=== PATIENT | female | born 1930 | race Caucasian/White ===

== ENCOUNTER 2018-04-10 12:06 | Inpatient (IN) ==
--- NOTE | 2018-04-10 12:18 | ERNOTE ---
Lower Extremity HPI - Narrative Date of Service: 04/10/18 - General Lower Extremities Pain: foot: left, 1st toe: left Time Seen by Provider: 04/10/18 12:17 Source: patient Exam Limitations: no limitations - Immun/Allergies/Home Medications Immunizations: IMMUNIZATION HX Immunizations Up to Date Yes History of Influenza Vaccine Yes Hx Pneumococcal Vaccination Yes Allergies/Adverse Reactions: Allergies Allergy/AdvReac Type Severity Reaction Status Date / Time codeine Allergy Verified 04/10/18 12:13 ibuprofen Allergy Verified 04/10/18 12:13 Home Medications: HOME MEDICATIONS Amlodipine Besylate 10 mg PO DAILY 10/03/17 [Last Taken Unknown] Atorvastatin Calcium 20 mg PO DAILY 10/03/17 [Last Taken Unknown] Cyanocobalamin [Vitamin B-12] 1,000 mcg PO DAILY 10/03/17 [Last Taken Unknown] Digoxin [Lanoxin] 0.125 mg PO DAILY 10/03/17 [Last Taken Unknown] Diltiazem HCl [Cartia Xt] 240 mg PO DAILY 10/03/17 [Last Taken Unknown] Furosemide [Lasix] 40 mg PO BID 10/03/17 [Last Taken Unknown] Lisinopril [Prinivil] 10 mg PO DAILY 10/03/17 [Last Taken Unknown] Omeprazole [Prilosec] 20 mg PO BID 10/03/17 [Last Taken Unknown] Sertraline HCl [Zoloft] 100 mg PO DAILY 10/03/17 [Last Taken Unknown] glipiZIDE [Glipizide] 15 mg PO BID 10/03/17 [Last Taken Unknown] Fluticasone/Salmeterol [Advair Hfa 115-21 Mcg Inhaler] 8 gm IH BID #1 hfa.aer.ad 10/04/17 [Last Taken Unknown] - Pain Score Pain Score #1 Pain Score: 0 - History of Present Illness Narrative: The patient is a 88 year old female who presents for left toe redness which has been present for 1 week. There are associated symptoms of fatigue. The patient denies pain. There are no alleviating factors. There are no aggravating factors. Previous treatments have included: none. The past medical history includes: HTN, HLD, GERD, DM, COPD and colorectal ca with hx of radiation treatment. The social history is positive for former smoker. The patient has had no ill contacts. Patient denies known injury to foot or left great toe. Patient was previously evaluated and treated with removal of calloused tissue to left great toe by as reported by patient. Patient states she has noticed for approximately 1 week discoloration and worsening redness to left great toe and foot along with drainage from wounds. Patient states she has began having discomfort noted to plantar 1st MP. Review of Systems - Review of Systems Constitutional: Present: chills, fatigue. Absent: fever EYE: Present: no symptoms reported ENT: Present: no symptoms reported. Absent: ear pain, nasal drainage, sore throat Respiratory: Present: no symptoms reported. Absent: shortness of breath, cough Cardiology: Present: no symptoms reported. Absent: chest pain Gastrointestinal/Abdominal: Present: nausea, vomiting, diarrhea Genitourinary: Present: no symptoms reported. Absent: dysuria Musculoskeletal: Present: joint pain Skin: Present: no symptoms reported. Absent: rash Neurological: Present: no symptoms reported Endocrine: Present: no symptoms reported Hematologic/Lymphatic: Present: no symptoms reported Psych: Present: no symptoms reported All Other Systems: All systems neg except as marked Medical History (Last Reviewed 04/10/18 @ 12:24 by RODOLFO Dya) COPD (chronic obstructive pulmonary disease) Diabetes GERD (gastroesophageal reflux disease) Hyperlipidemia Hypertension Social History: Preferred Language Slovak Smoking Status Former smoker Alcohol Use none Drug Use none No Social History Section defined Physical Exam - Physical Exam General Appearance: Present: wd/wn, alert, no apparent distress Head Exam: Present: normal inspection, no evidence of injury Eye Exam: Normal inspection: bilateral Neck: Present: normal inspection Respiratory: Present: no respiratory distress, no accessory muscle use, decreased breath sounds Cardiovascular/Chest: Present: no murmur, tachycardia Peripheral Pulses: N=norm/S=strong/W=weak/B=bound/A=absent: Dorsalis-pedis (L): Normal Extremity Exam: Present: normal range of motion, joint redness - left great metatarsal, areas of excoriation and necrotic tissue, erythema to circumferential great toe extending to dorsal foot Skin Exam: Present: normal color, warm/dry Progress - Date and Time Seen: Date and Time: 04/10/18 13:00 Message left for , attempt to also reach at office without contact made. Discussed case with will admit for presumed osteomylitis and cellulitis of left great toe. 04/10/18 13:37 Discussed with 's nurse awaiting return call. Discussed with case management and patient to be observation until definitive diagnosis of osteomylitis made. 04/10/18 13:47 Spoke with regarding consult during admission. Will start patient on Vanco since blood cultures and wound cultures obtained and pending. - Results and Orders Patient's Lab Results:: I have reviewed the patient's lab results. - Vital Signs Patient's Vital Signs:: I have reviewed the patient's vital signs. Vital Signs: Vital Signs 04/10/18 12:06 Temperature 36.7 C Pulse Rate 106 H Respiratory Rate 18 Blood Pressure 121/68 O2 Sat by Pulse Oximetry 99 - X-Ray X-Ray #1 X-Ray: foot Interpretation: Reviewed by me X-ray Comments: X-RAY REPORT ~[id number] RAD/Foot 3 Views LT *~ Exam Date: 04/10/2018 12:21 Ordering Physician: Vonda REYNOLDS HISTORY/INDICATION: wound and presumed necrosis to left great toe Additional history from technologist: Gangrenous left great toe. TECHNIQUE: 3 views of the left foot. COMPARISONS: None available. Foot 3 Views LT * No definable fracture lucency or cortical discontinuity. There is irregularity of the distal tuft of the first toe, and decreased attenuation/osteopenia localized to the first distal phalanx, which could represent potential osteomyelitis. Joint spaces are in gross normal alignment without subluxation or dislocation. Lisfranc joint grossly intact. Degenerative changes of the foot, especially at the first tarsometatarsal joint, first MTP joint noted. Soft tissue swelling noted at the first toe. Slight irregularity of the distal tip of the first toe may represent a skin wound. Correlate clinically. There is no evidence for soft tissue gas or radiopaque foreign body. IMPRESSION: 1. Findings as above, concerning for osteomyelitis of the first distal phalanx. If needed, consider follow-up by MRI examination of the left foot or three-phase nuclear medicine bone scan, on nonemergent basis. 2. Soft tissue swelling of the first toe. Potential wound at the tip of the first toe. Correlate clinically. 3. Additional comments are as above. Electronically signed by Pil Frankel, M.D.. - Progress/Reassessment Chief Complaint: Foot Injury/Pain Departure Clinical Impression: Osteomyelitis of toe of left foot Cellulitis Qualifiers: Site of cellulitis: extremity Site of cellulitis of extremity: lower extremity Laterality: left Qualified Code(s): L03.116 - Cellulitis of left lower limb - Departure Disposition: Still a patient Condition: Fair
[2018-04-10 12:43] LABS: Hematocrit 35.3 % (37.0-47.0); Hemoglobin 10.8 gm/dL (12.5-16.0); Mean Cell Volume 80.8 fl (78-100); Mean Corpuscular Hemoglobin 24.7 pg (27-31); Mean Corpuscular Hgb Conc 30.6 g/dl (32-36); Neutrophil # 10.3 K/mm3 (1.3-6.0); Neutrophil % 76.4 % (42-75.0); Platelet Count 263 K/mm3 (150-450); Red Blood Count 4.37 M/mm3 (4.2-5.4); Red Cell Distribution Width 16.1 % (11.5-14.0); White Blood Count 13.4 K/mm3 (4.0-10.5)
[2018-04-10 12:53] LABS: Albumin * 3.7 gm/dl (3.4-5.0); BUN/Creatinine Ratio 25.9 (9.0-21.6); Bilirubin, Total 0.4 mg/dL (0.0-1.1); CRP 2.8 mg/dL (0.0-0.9); Calcium * 9.1 mg/dL (7.9-10.9); Carbon Dioxide 29.1 mmol/L (24-32.6); Potassium 4.1 mmol/L (3.4-4.6); Total Protein 7.3 gm/dL (6.2-8.2)
[2018-04-10] MEDS ORDERED: VANCOMYCIN HCL 1 GM in DEXTROSE 5 % IN WATER 250 ML IV ONE ×2 (13:42)
--- NOTE | 2018-04-11 06:32 | HP ---
Chief Complaint - Chief Complaint Date of Service: 04/10/18 Time of Service: 13:00 Chief Complaint: Black left toe History of Present Illness: Luzmaria is an 88 yo female with history of uncontrolled diabetes mellitus type II, insulin dependent. She had seen Podiatry last week for sore on left great toe which was debrided. She reports afterwards it began to worsen and developed dark spots. She denies pain and reports toes are always numb. She denies fever, chills, nausea, or vomiting. She does report a history of bypass grafting for coronary heart disease. She has followed with cardiology in the past but has done well without problems since 2001. She has nitro to take for chest pain but rarely has to use this. Her last angina episode was about 3 months ago, she used a nitro SL at that time and her angina resolved as usual. S he denies any recent change in medication, diet, or activity. Medical History (Last Updated 04/13/18 @ 00:32 by Andrez No DO) CAD (coronary artery disease) Colon cancer COPD (chronic obstructive pulmonary disease) Diabetes GERD (gastroesophageal reflux disease) Hyperlipidemia Hypertension Surgical History: Surgical History (Last Reviewed 04/10/18 @ 14:22 by Rhonda Stephens RN) History of heart bypass surgery Family History: Family History (Last Updated 04/13/18 @ 00:32 by Andrez No DO) Other Family history non-contributory Social History: Patient Lives/Resources Home Utilized Occupation retired Preferred Language Haitian Do you have any baptism or No cultural preference? Smoking Status Former smoker Have you smoked in the past 12 No months Alcohol Use none Drug Use none No Social History Section defined Review Of Systems (GEN) - Review of Systems Generalized/Overall Review: Absent: Weakness, Chills, Fever EENTM: Present: No Symptoms Reported Respiratory: Absent: Cough, Shortness of Breath Cardiac: Absent: Chest Pain, Edema Abdominal: Absent: Nausea, Vomiting Genitourinary: Present: No Symptoms Reported Musculoskeletal: Absent: Joint Pain, Back Pain Neurological: Present: No Symptoms Reported Skin: Present: Change in Color - left great toe dark with surrounding redness Immunizations: IMMUNIZATION HX Immunizations Up to Date Yes History of Influenza Vaccine Yes Hx Pneumococcal Vaccination Yes Allergies/Adverse Reactions: Allergies Allergy/AdvReac Type Severity Reaction Status Date / Time codeine Allergy Severe Verified 04/10/18 14:24 ibuprofen AdvReac Mild Other Verified 04/10/18 14:24 Home Medications: HOME MEDICATIONS Amlodipine Besylate 10 mg PO DAILY 10/03/17 [Last Taken Unknown] Atorvastatin Calcium 20 mg PO HS 10/03/17 [Last Taken Unknown] Digoxin [Lanoxin] 0.125 mg PO DAILY 10/03/17 [Last Taken Unknown] Diltiazem HCl [Cartia Xt] 240 mg PO DAILY 10/03/17 [Last Taken Unknown] Furosemide [Lasix] 40 mg PO BID 10/03/17 [Last Taken Unknown] Lisinopril [Prinivil] 10 mg PO DAILY 10/03/17 [Last Taken Unknown] Omeprazole [Prilosec] 20 mg PO BID 10/03/17 [Last Taken Unknown] Sertraline HCl [Zoloft] 100 mg PO DAILY 10/03/17 [Last Taken Unknown] glipiZIDE [Glipizide] 5 mg PO TID 10/03/17 [Last Taken Unknown] Insulin Glargine,Hum.rec.anlog [Lantus Solostar] 100 unit SQ DAILY 04/11/18 [Last Taken Unknown] Meclizine HCl 25 mg PO BID 04/11/18 [Last Taken Unknown] Exam - Exam Vital Signs: Vital Signs - Last Taken Temp 37.3 C 04/11/18 05:00 Pulse 85 04/11/18 05:00 Resp 16 04/11/18 05:00 BP 138/63 04/11/18 05:00 Pulse Ox 95 04/11/18 05:00 Constitutional: Present: Alert, Oriented x3, Cooperative, No distress ENT Exam: Present: hearing grossly normal, other - rhythmic tongue protrusion Eye Exam: bilateral eye: normal inspection Respiratory: Present: lungs clear, normal breath sounds Cardiovascular/Chest: Present: regular rate, rhythm, no edema, systolic murmur - 2+ Peripheral Pulses: dorsalis-pedis (R): 2+, dorsalis-pedis (L): 2+, radial (R): 2+, radial (L): 2+ Abdomen: Present: Normal bowel sounds, soft, nontender, nondistended Skin Exam: Present: other - Left great toe with erythema from distal tip to 1st MTP joint, multiple blackened areas on left great toe Appearance: Present: appropriate insight Eye contact: Present: cooperative, good eye contact Thoughts: Present: normal thought pattern Diagnostic Studies: Abnormal Lab Results 04/10/18 04/10/18 04/10/18 Range/Units 12:34 12:34 12:34 WBC 13.4 H (4.0-10.5) K/mm3 Hgb 10.8 L (12.5-16.0) gm/dL Hct 35.3 L (37.0-47.0) % MCH 24.7 L (27-31) pg MCHC 30.6 L (32-36) g/dl RDW 16.1 H (11.5-14.0) % Immature Gran % (Auto) 0.70 H (0.001-0.429) % Immature Gran # (Auto) 0.09 H (0.000-0.0310) K/mm3 Neutrophils % 76.4 H (42-75.0) % Lymphocytes % 12.1 L (20-51) % Monocytes % 9.3 H (0.0-9) % Neutrophils # 10.3 H (1.3-6.0) K/mm3 Monocytes # 1.3 H (0.0-1.0) k/mm3 ESR 41 H (0-15) mm/hr Anion Gap 15.0 H (6.8-13.8) mmol/L BUN 30 H (3-23) mg/dL Est GFR (Non-Af Amer) 47 L (60-130) mL/min BUN/Creatinine Ratio 25.9 H (9.0-21.6) Random Glucose 69 L (70-110) mg/dL ALT 13 L (19-67) U/L C-Reactive Prot, Quant 2.8 H (0.0-0.9) mg/dL Laboratory Results WBC 13.4 K/mm3 (4.0-10.5) H 04/10/18 12:34 RBC 4.37 M/mm3 (4.2-5.4) 04/10/18 12:34 Hgb 10.8 gm/dL (12.5-16.0) L 04/10/18 12:34 Hct 35.3 % (37.0-47.0) L 04/10/18 12:34 MCV 80.8 fl (78-100) 04/10/18 12:34 MCH 24.7 pg (27-31) L 04/10/18 12:34 MCHC 30.6 g/dl (32-36) L 04/10/18 12:34 RDW 16.1 % (11.5-14.0) H 04/10/18 12:34 Plt Count 263 K/mm3 (150-450) 04/10/18 12:34 MPV 11.0 fl (8-12.5) 04/10/18 12:34 Immature Gran % (Auto) 0.70 % (0.001-0.429) H 04/10/18 12:34 Immature Gran # (Auto) 0.09 K/mm3 (0.000-0.0310) H 04/10/18 12:34 Neutrophils % 76.4 % (42-75.0) H 04/10/18 12:34 Lymphocytes % 12.1 % (20-51) L 04/10/18 12:34 Monocytes % 9.3 % (0.0-9) H 04/10/18 12:34 Eosinophils % 1.2 % (0.0-3.0) 04/10/18 12:34 Basophils % 0.3 % (0.0-1.0) 04/10/18 12:34 Nucleated RBC % 0.0 k/mm3 (0-1) 04/10/18 12:34 Neutrophils # 10.3 K/mm3 (1.3-6.0) H 04/10/18 12:34 Lymphocytes # 1.62 k/mm3 (1.5-3.5) 04/10/18 12:34 Monocytes # 1.3 k/mm3 (0.0-1.0) H 04/10/18 12:34 Eosinophils # 0.2 k/mm3 (0.0-0.7) 04/10/18 12:34 Absolute Basophils 0.0 k/mm3 (0.0-0.1) 04/10/18 12:34 ESR 41 mm/hr (0-15) H 04/10/18 12:34 Sodium 140 mmol/L (132-142) 04/10/18 12:34 Plasma Sodium 140 mmol/L (130-142) 04/10/18 12:34 Potassium 4.1 mmol/L (3.4-4.6) 04/10/18 12:34 Chloride 100 mmol/L (97-106) 04/10/18 12:34 Carbon Dioxide 29.1 mmol/L (24-32.6) 04/10/18 12:34 Anion Gap 15.0 mmol/L (6.8-13.8) H 04/10/18 12:34 BUN 30 mg/dL (3-23) H 04/10/18 12:34 Creatinine 1.16 mg/dL (0.4-1.4) 04/10/18 12:34 Est GFR (Non-Af Amer) 47 mL/min (60-130) L 04/10/18 12:34 BUN/Creatinine Ratio 25.9 (9.0-21.6) H 04/10/18 12:34 Random Glucose 69 mg/dL (70-110) L 04/10/18 12:34 Lactic Acid, Venous 0.7 mmol/L (0.4-2.0) 04/10/18 12:34 Calcium 9.1 mg/dL (7.9-10.9) 04/10/18 12:34 Calcium Adj for Albumin 9.0 mg/dL (8.4-10.2) 04/10/18 12:34 Total Bilirubin 0.4 mg/dL (0.0-1.1) 04/10/18 12:34 AST 17 U/L (0-48) 04/10/18 12:34 ALT 13 U/L (19-67) L 04/10/18 12:34 Alkaline Phosphatase 111 U/L (50-170) 04/10/18 12:34 C-Reactive Prot, Quant 2.8 mg/dL (0.0-0.9) H 04/10/18 12:34 Total Protein 7.3 gm/dL (6.2-8.2) 04/10/18 12:34 Albumin 3.7 gm/dl (3.4-5.0) 04/10/18 12:34 Assessment/Plan - Narrative Narrative: Luzmaria is an 88 yo female with suspected osteomyelitis of left great toe secondary to uncontrolled insulin dependent diabetes mellitus type II with diabetic foot ulcer. Will treat with vancomycin and consult podiatry. Will get MRI to identify extensiveness of infection. Xray suggests osteomyelitis but this will be confirmed with MRI. Will admit to observation at this time, but if osteomyelitis is confirmed on MRI will change to acute inpatient as she will likely need surgical intervention. 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 transplanted heart: [place] heart Associated angina: without angina Qualified Code(s): I25.810 - Atherosclerosis of coronary artery bypass graft(s) without angina pectoris
[2018-04-11] MEDS: INSULIN LISPRO 100 UNITS/ML VIAL SC SCH ×4 (07:17→21:48)
[2018-04-11 07:38] LABS: Hematocrit 33.4 % (37.0-47.0); Hemoglobin 10.1 gm/dL (12.5-16.0); Mean Cell Volume 80.9 fl (78-100); Mean Corpuscular Hemoglobin 24.5 pg (27-31); Mean Corpuscular Hgb Conc 30.2 g/dl (32-36); Mean Platelet Volume 10.6 fl (8-12.5); Neutrophil # 7.9 K/mm3 (1.3-6.0); Neutrophil % 72.2 % (42-75.0); Platelet Count 238 K/mm3 (150-450); Red Blood Count 4.13 M/mm3 (4.2-5.4); Red Cell Distribution Width 15.9 % (11.5-14.0)
[2018-04-11 07:47] LABS: Albumin * 3.4 gm/dl (3.4-5.0); BUN/Creatinine Ratio 25.8 (9.0-21.6); Bilirubin, Total 0.6 mg/dL (0.0-1.1); Ca. Corrected For Albumin 9.1 mg/dL (8.4-10.2); Calcium * 8.9 mg/dL (7.9-10.9); Carbon Dioxide 30.1 mmol/L (24-32.6); Potassium 4.1 mmol/L (3.4-4.6); Total Protein 6.9 gm/dL (6.2-8.2)
--- NOTE | 2018-04-11 11:53 | CONS ---
- Reason for consultation (1) Osteomyelitis of toe of left foot Date of Service: 04/11/18 HPI - General Date of Service: 04/11/18 Narrative: Pt presented to the ED yesterday with c/o worsening condition of her left great toe. States that she has been under the care of Dr. Cintron for an ulceration to this toe for quite some time (approximately 1 year per family), and was seen approximately 1 week ago for what sounds like wound debridement. Relates that since that time, she has been noticing the toe is becoming more red to black in color, especially at the tip of the toe. She also noticed redness extending in to her dorsal foot. Xrays obtained in ED showing bone destruction in the distal phalanx, concerning for osteomyelitis. She was admitted for IV ABX, and MRI was obtained, showing concerns for osteomyelitis in her distal phalanx of the great toe. She has DM with peripheral neuropathy, so relates no pain in the toe/foot. I was consulted for surgical evaluation and treatment. Source: patient, family - History of Present Illness Timing/Duration: 1 week Allergies/Adverse Reactions: Allergies codeine Allergy (Severe, Verified 04/10/18 14:24) Dizzy ibuprofen Adverse Reaction (Mild, Verified 04/10/18 14:24) Other Constipation Home Medications: Home Medications Medication Instructions Recorded Last Taken Amlodipine Besylate 10 mg PO DAILY 10/03/17 Unknown Atorvastatin Calcium 20 mg PO DAILY 10/03/17 Unknown Cyanocobalamin [Vitamin B-12] 1,000 mcg PO DAILY 10/03/17 Unknown Digoxin [Lanoxin] 0.125 mg PO DAILY 10/03/17 Unknown Diltiazem HCl [Cartia Xt] 240 mg PO DAILY 10/03/17 Unknown Furosemide [Lasix] 40 mg PO BID 10/03/17 Unknown Lisinopril [Prinivil] 10 mg PO DAILY 10/03/17 Unknown Omeprazole [Prilosec] 20 mg PO BID 10/03/17 Unknown Sertraline HCl [Zoloft] 100 mg PO DAILY 10/03/17 Unknown glipiZIDE [Glipizide] 15 mg PO BID 10/03/17 Unknown Fluticasone/Salmeterol [Advair Hfa 8 gm IH BID #1 hfa.aer.ad 10/04/17 Unknown 115-21 Mcg Inhaler] Budesonide/Formoterol Fumarate 10.2 gm INHALATION BID 04/11/18 Unknown [Symbicort 160-4.5 Mcg Inhaler] Insulin Glargine,Hum.rec.anlog 100 unit SQ DAILY 04/11/18 Unknown [Lantus Solostar] Nitroglycerin 0.4 mg SUBLINGUAL PRN 04/11/18 Unknown Ondansetron [Zofran Odt] 4 mg PO PRN 04/11/18 Unknown Tiotropium Valentine [Spiriva] 1 cap INHALATION DAILY 04/11/18 Unknown traMADol HCL [Tramadol HCl] 50 mg PO BID PRN 04/11/18 Unknown Procedures Discission of secondary membrane [after cataract] (11/16/10) Insertion of intraocular lens prosthesis at time of cataract extraction, one- stage (12/18/10) Phacoemulsification and aspiration of cataract (12/18/10) Medications - Medications Current Medications: Current Medications Insulin Human Lispro (Humalog) 0 units SC [facility]; Protocol Stop: 05/11/18 07:01 Last Admin: 04/11/18 07:17 Dose: Not Given Documented by: Review of Systems - Review of Systems Generalized/Overall Review: Absent: Chills, Fever Cardiac: Absent: Edema Abdominal: Absent: Nausea, Vomiting Neurological: Present: Numbness Skin: Present: Other - left great toe ulcer Physical Examination - Exam Vital Signs: Vital Signs - Last Taken Temp 37.1 C 04/11/18 11:15 Pulse 110 H 04/11/18 11:15 Resp 20 04/11/18 11:15 BP 136/64 04/11/18 11:15 Pulse Ox 95 04/11/18 11:15 O2 Oxygen Delivery Method Room Air Constitutional: Present: Alert, Cooperative Peripheral Pulses: dorsalis-pedis (L): 0 - trace palpation, CRFT sluggish Skin Exam: Present: other - Black, dry, gangrenous changes noted to the distal left great toe with loosening of the toenail. Toe is black to just proximal to the IPJ of the toe. Erythema present about the great toe extending into the dorsum of the forefoot. No red streaks present. There is very scant sero- purulent drainage expressed from under the nail plate, otherwise there is no active drainage. No tenderness secondary to neuropathy. Neurologic: Present: sensory deficit Appearance: Present: appropriate appearance Eye contact: Present: cooperative - Results and Findings: Lab/Microbiology results last 24 hrs: Abnormal/Pending Laboratory Last 24 HRS 04/11/18 04/11/18 04/11/18 07:30 07:30 07:30 WBC 11.0 H RBC 4.13 L Hgb 10.1 L Hct 33.4 L MCH 24.5 L MCHC 30.2 L RDW 15.9 H Immature Gran % (Auto) 0.50 H Immature Gran # (Auto) 0.06 H Neutrophils % Lymphocytes % 15.2 L Monocytes % 10.1 H Neutrophils # 7.9 H Monocytes # 1.1 H ESR 48 H Anion Gap BUN 31 H Est GFR (Non-Af Amer) 45 L BUN/Creatinine Ratio 25.8 H Random Glucose 61 L ALT 12 L C-Reactive Prot, Quant 04/10/18 04/10/18 04/10/18 12:34 12:34 12:34 WBC 13.4 H RBC Hgb 10.8 L Hct 35.3 L MCH 24.7 L MCHC 30.6 L RDW 16.1 H Immature Gran % (Auto) 0.70 H Immature Gran # (Auto) 0.09 H Neutrophils % 76.4 H Lymphocytes % 12.1 L Monocytes % 9.3 H Neutrophils # 10.3 H Monocytes # 1.3 H ESR 41 H Anion Gap 15.0 H BUN 30 H Est GFR (Non-Af Amer) 47 L BUN/Creatinine Ratio 25.9 H Random Glucose 69 L ALT 13 L C-Reactive Prot, Quant 2.8 H Culture 04/10/18 12:28 Wound Culture - Preliminary Toe - Left No Growth - Assessments/Findings (1) Osteomyelitis of toe of left foot Diagnosis(s): Discussed diagnosis, as well as xray and MRI findings with patient and family. Given options of mcc IV ABX therapy, however this will not guarantee her infection to resolve and she may require more extensive surgery down the road vs distal great toe amputation, however given the extent of the gangrenous skin changes, I would not be confident there is enough healthy skin to be able to close vs amputation of the entire left great toe, which would remove all infection present on imaging and would remove all non-viable tissue, allowing closure of the incision at time of surgery. There are no guarantees that her incision will heal given her poor circulation, however I believe removal of the entire toe would give her the best opportunity for healing her infection. Pt and family are in agreement with amputation of the entire great toe. Discussed risks and benefits of the surgery, anesthesia, and all post-operative care. Again, no guarantees given or implied. Pt wishes to proceed. Will consent for left great toe amputation. Will plan to add on for 04/13/2018. Explained that I will have to follow other surgeons who are already scheduled that day, so will likely be in the afternoon, which they are ok with. Will be NPO after 6:00 am Friday. Left great toe dressed today with dry gauze, catrachita, and tape. To be kept CDI. I will continue dressing changes at this time. Problem: Acute
[2018-04-11] MEDS: VANCOMYCIN HCL 750 MG in DEXTROSE 5 % IN WATER 250 ML IV SCH ×2 (13:55)
[2018-04-11] MEDS: DIGOXIN 0.125 MG TABLET PO SCH (14:13)
[2018-04-11] MEDS: amLODIPine BESYLATE 10 MG TABLET PO SCH (14:14)
[2018-04-11] MEDS: glipiZIDE 5 MG TABLET PO SCH (16:50)
[2018-04-11] MEDS: INSULIN GLARGINE,HUM.REC.ANLOG 100 UNITS/ML VIAL SC SCH (21:46)
[2018-04-11] MEDS: FUROSEMIDE 40 MG TABLET PO SCH (21:48)
[2018-04-11] MEDS: ACETAMINOPHEN 500 MG TABLET PO PRN (22:05)
[2018-04-12] MEDS: INSULIN LISPRO 100 UNITS/ML VIAL SC SCH ×3 (07:03→16:48)
[2018-04-12] MEDS: glipiZIDE 5 MG TABLET PO SCH ×3 (07:03→16:49)
[2018-04-12] MEDS: amLODIPine BESYLATE 10 MG TABLET PO SCH (08:54)
[2018-04-12] MEDS: FUROSEMIDE 40 MG TABLET PO SCH ×2 (08:54→21:00)
[2018-04-12] MEDS: DIGOXIN 0.125 MG TABLET PO SCH (08:54)
[2018-04-12 11:10] LABS: Hematocrit 35.5 % (37.0-47.0); Hemoglobin 10.7 gm/dL (12.5-16.0); Mean Cell Volume 80.7 fl (78-100); Mean Corpuscular Hemoglobin 24.3 pg (27-31); Mean Corpuscular Hgb Conc 30.1 g/dl (32-36); Mean Platelet Volume 10.9 fl (8-12.5); Neutrophil % 79.7 % (42-75.0); Platelet Count 228 K/mm3 (150-450); Red Cell Distribution Width 15.7 % (11.5-14.0)
[2018-04-12 11:17] LABS: Albumin * 3.4 gm/dl (3.4-5.0); Anion Gap 15.8 mmol/L (6.8-13.8); BUN/Creatinine Ratio 32.7 (9.0-21.6); Bilirubin, Total 0.4 mg/dL (0.0-1.1); Ca. Corrected For Albumin 9.5 mg/dL (8.4-10.2); Calcium * 9.3 mg/dL (7.9-10.9); Carbon Dioxide 27.8 mmol/L (24-32.6); Potassium 4.6 mmol/L (3.4-4.6); Total Protein 6.9 gm/dL (6.2-8.2)
[2018-04-12] MEDS: VANCOMYCIN HCL 750 MG in DEXTROSE 5 % IN WATER 250 ML IV SCH ×2 (14:19)
--- NOTE | 2018-04-12 14:20 | PN ---
Subjective - Date and Time Seen Date: 04/12/18 Time: 14:17 Subjective Narrative: Pt evaluated at bedside resting. Denies any N/V/F/C. Denies any pain in the left foot. She has consented to amputation of the left great toe tomorrow. Denies having any questions at this time. Son in room with her, also with no questions. Objective - Review of Systems Generalized/Overall Review: Denies: Chills, Fever Cardiac: Denies: Edema Abdominal: Denies: Nausea, Vomiting Neurological: Reports: Numbness Skin: Reports: Other - ulcer left great toe - Vitals Vitals: Last Vital Signs Temp 36.8 C 04/12/18 13:00 Pulse 118 H 04/12/18 13:00 Resp 18 04/12/18 13:00 BP 160/80 H 04/12/18 13:00 Pulse Ox 97 04/12/18 13:00 - Abnormal Lab Findings Abnormal Lab Findings: Abnormal Lab Results 04/12/18 04/12/18 Range/Units 10:58 10:58 Hgb 10.7 L (12.5-16.0) gm/dL Hct 35.5 L (37.0-47.0) % MCH 24.3 L (27-31) pg MCHC 30.1 L (32-36) g/dl RDW 15.7 H (11.5-14.0) % Immature Gran % (Auto) 0.50 H (0.001-0.429) % Immature Gran # (Auto) 0.05 H (0.000-0.0310) K/mm3 Neutrophils % 79.7 H (42-75.0) % Lymphocytes % 9.2 L (20-51) % Monocytes % 9.3 H (0.0-9) % Neutrophils # 8.0 H (1.3-6.0) K/mm3 Lymphocytes # 0.92 L (1.5-3.5) k/mm3 Anion Gap 15.8 H (6.8-13.8) mmol/L BUN 35 H (3-23) mg/dL Est GFR (Non-Af Amer) 52 L (60-130) mL/min BUN/Creatinine Ratio 32.7 H (9.0-21.6) Random Glucose 367 H D (70-110) mg/dL ALT 12 L (19-67) U/L - Exam Constitutional: Present: Alert, Cooperative Skin Exam: Present: other - Left great toe ulceration unchanged in appearance. Erythema has reduced some with current IV ABX, now localized to great toe only. No tenderness present. Neurologic: Present: sensory deficit Appearance: Present: appropriate appearance Eye contact: Present: cooperative Assessment/Plan - Problems/Diagnosis (1) Osteomyelitis of toe of left foot Problem: Acute Narrative: New dressing of dry gauze, catrachita, and MELODIE bandage applied to left great toe. Still plan to go to OR tomorrow for left great toe amputation. Will be in afternoon. Will be NPO after 6:00 am. Again discussed surgery with pt and son, no guarantees given. Both deny any current questions regarding her procedure or recovery.
[2018-04-12] MEDS: INSULIN GLARGINE,HUM.REC.ANLOG 100 UNITS/ML VIAL SC SCH (20:59)
[2018-04-12] MEDS: ACETAMINOPHEN 500 MG TABLET PO PRN (21:00)
--- NOTE | 2018-04-12 23:25 | PN ---
Subjective - Date and Time Seen Date: 04/11/18 Time: 12:30 Subjective Narrative: Reports pain controlled. No fever, chills, nausea, or vomiting. Objective - Vitals Vitals: Last Vital Signs Afebrile, VSS. - Abnormal Lab Findings Abnormal Lab Findings: Abnormal Lab Results - Exam Constitutional: Present: Alert, Oriented x3, Cooperative ENT Exam: Present: hearing grossly normal Respiratory: Present: lungs clear, normal breath sounds Cardiovascular/Chest: Present: no murmur, irregularly irregular Abdomen: Present: Normal bowel sounds, soft, nontender, nondistended Assessment/Plan Plan Narrative: Surgery per podiatry. Continue antibiotics. Awaiting cultures. No medical concerns. - Problems/Diagnosis (1) Osteomyelitis of toe of left foot Problem: Acute (2) Uncontrolled diabetes mellitus Problem: Acute Qualifiers: Diabetes mellitus type: type 2 Glycemic state: with hyperglycemia Qualified Code(s): E11.65 - Type 2 diabetes mellitus with hyperglycemia (3) Atrial fibrillation Problem: Chronic Qualifiers: Atrial fibrillation type: chronic Qualified Code(s): I48.2 - Chronic atrial fibrillation
--- NOTE | 2018-04-12 23:26 | PN ---
Subjective - Date and Time Seen Date: 04/12/18 Time: 12:45 Subjective Narrative: Luzmaria reports doing well. No concerns. No foot pain. No chest pain, shortness of breath, nausea, vomiting, fever, or chills. Objective - Vitals Vitals: Last Vital Signs Temp 36.9 C 04/12/18 21:00 Pulse 115 H 04/12/18 21:00 Resp 20 04/12/18 21:00 BP 161/77 H 04/12/18 21:00 Pulse Ox 96 04/12/18 21:00 - Abnormal Lab Findings Abnormal Lab Findings: Abnormal Lab Results 04/12/18 04/12/18 Range/Units 10:58 10:58 Hgb 10.7 L (12.5-16.0) gm/dL Hct 35.5 L (37.0-47.0) % MCH 24.3 L (27-31) pg MCHC 30.1 L (32-36) g/dl RDW 15.7 H (11.5-14.0) % Immature Gran % (Auto) 0.50 H (0.001-0.429) % Immature Gran # (Auto) 0.05 H (0.000-0.0310) K/mm3 Neutrophils % 79.7 H (42-75.0) % Lymphocytes % 9.2 L (20-51) % Monocytes % 9.3 H (0.0-9) % Neutrophils # 8.0 H (1.3-6.0) K/mm3 Lymphocytes # 0.92 L (1.5-3.5) k/mm3 Anion Gap 15.8 H (6.8-13.8) mmol/L BUN 35 H (3-23) mg/dL Est GFR (Non-Af Amer) 52 L (60-130) mL/min BUN/Creatinine Ratio 32.7 H (9.0-21.6) Random Glucose 367 H D (70-110) mg/dL ALT 12 L (19-67) U/L - Exam Constitutional: Present: Alert, Oriented x3, Cooperative ENT Exam: Present: hearing grossly normal Respiratory: Present: lungs clear, normal breath sounds Cardiovascular/Chest: Present: systolic murmur - 2+, irregularly irregular Abdomen: Present: Normal bowel sounds, soft, nontender, nondistended, no rebound tenderness Skin Exam: Present: other - Left great toe wrapped in dressing Appearance: Present: other - Rhythmic tongue protrusion Assessment/Plan Plan Narrative: Luzmaria requires amputation of distal phalanx of left great toe due to osteomyelitis caused from uncontrolled insulin dependent diabetes mellitus type two with a diabetic foot ulcer. Currently on Vancomycin. Wound culture and culture of bone will be monitored. Will need amputation. I feel she is medically stable for amputation. She has a history of CAD and atrial fibrillation. But clincally sounds that these have been stable. She has history of CABG and insulin dependent diabetes Mellitus Type II. This gives her a 10.1% risk of cardiac event with surgery. This will be preoperatively managed with her home medication of diltiazem for rate control. 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
[2018-04-13] MEDS ORDERED: DILTIAZEM HCL 240 MG CAP.SR.24H PO SCH (01:00)
[2018-04-13] MEDS: LISINOPRIL 10 MG TABLET PO SCH ×2 (01:10→08:12)
[2018-04-13] MEDS: INSULIN LISPRO 100 UNITS/ML VIAL SC SCH ×3 (07:34→17:18)
[2018-04-13] MEDS: glipiZIDE 5 MG TABLET PO SCH ×3 (07:35→17:19)
[2018-04-13] MEDS: DILTIAZEM HCL 240 MG CAP.SR.24H PO SCH (08:12)
[2018-04-13] MEDS: DIGOXIN 0.125 MG TABLET PO SCH (08:12)
[2018-04-13] MEDS: FUROSEMIDE 40 MG TABLET PO SCH ×2 (08:12→20:27)
[2018-04-13] MEDS: amLODIPine BESYLATE 10 MG TABLET PO SCH (08:15)
[2018-04-13] MEDS: ACETAMINOPHEN 500 MG TABLET PO PRN (10:45)
[2018-04-13] MEDS: DEXTROSE 5%-0.5 NORMAL SALINE 1,000 ML IV PRN (11:50)
--- NOTE | 2018-04-13 12:36 | ANES ---
Anesthesia Pre Procedure Eval Vitals/Labs: Last Vital Signs Temp 36.7 C 04/13/18 10:56 Pulse 92 04/13/18 10:56 Resp 18 04/13/18 10:56 BP 146/50 04/13/18 10:56 Pulse Ox 94 04/13/18 10:56 HOME MEDICATIONS Amlodipine Besylate 10 mg PO DAILY 10/03/17 [Last Taken Unknown] Atorvastatin Calcium 20 mg PO HS 10/03/17 [Last Taken Unknown] Digoxin [Lanoxin] 0.125 mg PO DAILY 10/03/17 [Last Taken Unknown] Diltiazem HCl [Cartia Xt] 240 mg PO DAILY 10/03/17 [Last Taken Unknown] Furosemide [Lasix] 40 mg PO BID 10/03/17 [Last Taken Unknown] Lisinopril [Prinivil] 10 mg PO DAILY 10/03/17 [Last Taken Unknown] Omeprazole [Prilosec] 20 mg PO BID 10/03/17 [Last Taken Unknown] Sertraline HCl [Zoloft] 100 mg PO DAILY 10/03/17 [Last Taken Unknown] glipiZIDE [Glipizide] 5 mg PO TID 10/03/17 [Last Taken Unknown] Insulin Glargine,Hum.rec.anlog [Lantus Solostar] 100 unit SQ DAILY 04/11/18 [Last Taken Unknown] Meclizine HCl 25 mg PO BID 04/11/18 [Last Taken Unknown] Allergies/Adverse Reactions: Allergies Allergy/AdvReac Type Severity Reaction Status Date / Time codeine Allergy Severe Verified 04/10/18 14:24 ibuprofen AdvReac Mild Other Verified 04/10/18 14:24 - Planned Procedure Planned Procedure: cellulitis lft great toe and foot Medication List Reviewed:: Yes Allergies Verified: Yes Medical History (Last Reviewed 04/13/18 @ 12:35 by Jean Russo CRNA) CAD (coronary artery disease) Colon cancer COPD (chronic obstructive pulmonary disease) Diabetes GERD (gastroesophageal reflux disease) Hyperlipidemia Hypertension Surgical History (Last Reviewed 04/13/18 @ 12:35 by Jean Russo CRNA) History of heart bypass surgery Family History (Last Reviewed 04/13/18 @ 12:35 by Jean Russo CRNA) Other Family history non-contributory - Family Anesthesia History Family History:: no untoward family reactions to anesthesia - Airway/Neck/Teeth Denture Type: Full upper, Full lower Neck Exam: full range of motion Mallampatti Score: 2 Thyromental (T-M) distance: > 6 cm Mandibulo Hyoid distance: > 3 cm - Respiratory Respiratory Physical: lungs clear Smoking Status: Former smoker Sleep Apnea currently treated: No Sleep Apnea by current assessment: No - Cardiovascular Cardiac History: arrhythmia, CAD, hypertension Tolerate Activity: Poor Heart Sounds: Irregular - Anesthesia Assessment and Plan ASA Class: III Anesthesia Type Plan: MAC Planned difficult intubation/equipment available: No
[2018-04-13] MEDS ORDERED: VANCOMYCIN HCL LEVEL XX ONE (13:30)
[2018-04-13] MEDS: VANCOMYCIN HCL 750 MG in DEXTROSE 5 % IN WATER 250 ML IV SCH ×2 (14:19)
[2018-04-13] MEDS ORDERED: BUPIVACAINE HCL/PF 30 ML VIAL IJ ONE (14:59)
[2018-04-13] MEDS ORDERED: LIDOCAINE HCL 50 ML VIAL IJ ONE (14:59)
--- NOTE | 2018-04-13 15:36 | ANES ---
Post Anesthesia Discharge - Transfer of Care Transfer of Care handoff given to nurse: Yes - Discharge to ASU Discharge to ASU-no complications/pt stable: Yes - In room as ASU.
[2018-04-13] MEDS ORDERED: VANCOMYCIN HCL 1 GM in NORMAL SALINE 250 ML IV SCH (17:00)
--- NOTE | 2018-04-13 17:56 | ANES ---
Post Anesthesia Assessment - Vital Signs Vitals: Last Vital Signs Temp 36.3 C 04/13/18 17:27 Pulse 70 04/13/18 17:27 Resp 20 04/13/18 17:27 BP 117/66 04/13/18 17:27 Pulse Ox 96 04/13/18 17:27 Airway Patency: Normal - Mental Status Level Of Consciousness: Awake, Alert - Pain Level Pain Score: 0 - N/V Assessment Nausea/Vomiting Presence: None Dehydration:: No
[2018-04-13] MEDS: traMADol HCL 50 MG TABLET PO PRN (20:26)
[2018-04-13] MEDS: INSULIN GLARGINE,HUM.REC.ANLOG 100 UNITS/ML VIAL SC SCH (20:32)
--- NOTE | 2018-04-13 23:43 | PN ---
Subjective - Date and Time Seen Date: 04/13/18 Time: 12:45 Subjective Narrative: Luzmaria reports feeling well. No fever, chills, nausea, or vomiting. Pain controlled. Objective - Vitals Vitals: Last Vital Signs Temp 36.3 C 04/13/18 17:27 Pulse 92 04/13/18 20:31 Resp 20 04/13/18 20:31 BP 149/70 04/13/18 20:31 Pulse Ox 95 04/13/18 20:31 - Abnormal Lab Findings Abnormal Lab Findings: Abnormal Lab Results 04/13/18 Range/Units 13:45 Vancomycin Trough 8.8 L (10.0-20.0) mcg/mL - Exam Constitutional: Present: Alert, Oriented x3, Cooperative ENT Exam: Present: hearing grossly normal Respiratory: Present: lungs clear, normal breath sounds Cardiovascular/Chest: Present: irregularly irregular Abdomen: Present: Normal bowel sounds, soft, nontender, nondistended Neurologic: Present: no motor/sensory deficits, alert, normal mood/affect Assessment/Plan Plan Narrative: Doing well. Surgery today, will monitor post-op and if doing well overnight will plan to discharge to home on out patient antibiotics following amputation. 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
[2018-04-14] MEDS: DEXTROSE 5%-0.5 NORMAL SALINE 1,000 ML IV PRN (00:52)
[2018-04-14] MEDS: ACETAMINOPHEN 500 MG TABLET PO PRN ×2 (02:14→08:18)
[2018-04-14] MEDS: traMADol HCL 50 MG TABLET PO PRN ×2 (03:15→11:59)
[2018-04-14] MEDS: INSULIN LISPRO 100 UNITS/ML VIAL SC SCH ×2 (07:30→11:56)
[2018-04-14] MEDS: glipiZIDE 5 MG TABLET PO SCH ×2 (07:31→11:56)
[2018-04-14] MEDS: DIGOXIN 0.125 MG TABLET PO SCH (08:18)
[2018-04-14] MEDS: amLODIPine BESYLATE 10 MG TABLET PO SCH (08:18)
[2018-04-14] MEDS: DILTIAZEM HCL 240 MG CAP.SR.24H PO SCH (08:18)
[2018-04-14] MEDS: LISINOPRIL 10 MG TABLET PO SCH (08:18)
[2018-04-14] MEDS: FUROSEMIDE 40 MG TABLET PO SCH (08:19)
[2018-04-14 09:51] LABS: Hemoglobin 10.8 gm/dL (12.5-16.0); Mean Cell Volume 82.2 fl (78-100); Mean Corpuscular Hemoglobin 24.7 pg (27-31); Mean Platelet Volume 11.2 fl (8-12.5); Neutrophil # 8.2 K/mm3 (1.3-6.0); Neutrophil % 74.1 % (42-75.0); Platelet Count 276 K/mm3 (150-450); Red Blood Count 4.38 M/mm3 (4.2-5.4); Red Cell Distribution Width 15.8 % (11.5-14.0)
[2018-04-14 10:04] LABS: Albumin * 3.3 gm/dl (3.4-5.0); Anion Gap 12.9 mmol/L (6.8-13.8); BUN/Creatinine Ratio 32.8 (9.0-21.6); Bilirubin, Total 0.5 mg/dL (0.0-1.1); Ca. Corrected For Albumin 9.2 mg/dL (8.4-10.2); Carbon Dioxide 27.5 mmol/L (24-32.6); Potassium 4.4 mmol/L (3.4-4.6)
--- NOTE | 2018-04-14 12:46 | PN ---
Subjective - Date and Time Seen Date: 04/14/18 Time: 11:40 Subjective Narrative: Pt evaluated in bedside chair resting. Denies any N/V/F/C. Denies any pain in the left foot. She underwent amputation of the left great toe yesterday. Dressing has been left CDI. She is wearing surgical shoe. Has questions on going home. Objective - Review of Systems Generalized/Overall Review: Denies: Chills, Fever Respiratory: Denies: Shortness of Breath Abdominal: Denies: Nausea, Vomiting Neurological: Reports: Numbness Skin: Reports: Other - incision left foot - Vitals Vitals: Last Vital Signs Temp 36.4 C 04/14/18 11:03 Pulse 63 04/14/18 11:03 Resp 16 04/14/18 11:03 BP 127/50 04/14/18 11:03 Pulse Ox 96 04/14/18 11:03 - Abnormal Lab Findings Abnormal Lab Findings: Abnormal Lab Results 04/13/18 04/14/18 04/14/18 Range/Units 13:45 09:38 09:38 WBC 11.0 H (4.0-10.5) K/mm3 Hgb 10.8 L (12.5-16.0) gm/dL Hct 36.0 L (37.0-47.0) % MCH 24.7 L (27-31) pg MCHC 30.0 L (32-36) g/dl RDW 15.8 H (11.5-14.0) % Immature Gran % (Auto) 0.60 H (0.001-0.429) % Immature Gran # (Auto) 0.07 H (0.000-0.0310) K/mm3 Lymphocytes % 11.2 L (20-51) % Monocytes % 10.1 H (0.0-9) % Eosinophils % 3.6 H (0.0-3.0) % Neutrophils # 8.2 H (1.3-6.0) K/mm3 Lymphocytes # 1.24 L (1.5-3.5) k/mm3 Monocytes # 1.1 H (0.0-1.0) k/mm3 ESR 43 H (0-15) mm/hr BUN (3-23) mg/dL Est GFR (Non-Af Amer) (60-130) mL/min BUN/Creatinine Ratio (9.0-21.6) Random Glucose (70-110) mg/dL ALT (19-67) U/L Albumin (3.4-5.0) gm/dl Vancomycin Trough 8.8 L (10.0-20.0) mcg/mL 04/14/18 Range/Units 09:38 WBC (4.0-10.5) K/mm3 Hgb (12.5-16.0) gm/dL Hct (37.0-47.0) % MCH (27-31) pg MCHC (32-36) g/dl RDW (11.5-14.0) % Immature Gran % (Auto) (0.001-0.429) % Immature Gran # (Auto) (0.000-0.0310) K/mm3 Lymphocytes % (20-51) % Monocytes % (0.0-9) % Eosinophils % (0.0-3.0) % Neutrophils # (1.3-6.0) K/mm3 Lymphocytes # (1.5-3.5) k/mm3 Monocytes # (0.0-1.0) k/mm3 ESR (0-15) mm/hr BUN 39 H (3-23) mg/dL Est GFR (Non-Af Amer) 46 L (60-130) mL/min BUN/Creatinine Ratio 32.8 H (9.0-21.6) Random Glucose 178 H D (70-110) mg/dL ALT 18 L (19-67) U/L Albumin 3.3 L (3.4-5.0) gm/dl Vancomycin Trough (10.0-20.0) mcg/mL - Exam Constitutional: Present: Alert, Cooperative Skin Exam: Present: other - Dressing to left foot CDI with scant bloody drainage from surgery. Incision over amputation site of left great toe remains well approximated with sutures intact. Skin is pink and intact, erythema appears resolved. No swelling present. No tenderness. Neurologic: Present: sensory deficit Appearance: Present: appropriate appearance Eye contact: Present: cooperative Assessment/Plan - Problems/Diagnosis (1) Osteomyelitis of toe of left foot Problem: Acute Narrative: Pt is POD #1 following left great toe amputation, progressing well. Incision well approximated, sutures intact. Skin is healthy pink in color, erythema has resolved. Surgical cultures remain pending at this time. New DSD applied to the left foot. To be kept CDI. May bear weight in surgical shoe, may remove shoe at rest. Ok for d/c home when clear with Dr. No. Plan for 1 week of oral ABX following d/c. Will adjust as needing pending final culture results. Will follow up in my office on 04/20/2018.
--- NOTE | 2018-04-14 13:01 | DS ---
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 She was started on vancomycin and podiatry was consulted. An xray showed evidence of osteomyelitis, but a MRI was performed to confirm and see the extensiveness of infection. MRI did confirm osteomyelitis. She was medically cleared for surgery. Pain was controlled and she was continued on vancomycin until amputation if infected tissue was performed on 04/13/18. She did will with surgery and will be discharged to home today with follow up with Dr. Hutchinson for dressing changes. She will be continued on Ciprofloxacin 500mg BID x 7 days. She will get tramadol to use prn for pain control at home. She declines any need for home health. Procedures Performed: see notes below List Procedures: PROCEDURE 04/13/18: Amputation of the left great toe. Results and Findings: Pending Mircobiology Results 04/13/18 15:00 Toe - Left Miscellaneous Culture - Preliminary Ruling Out Pathogen 04/10/18 13:11 Blood Blood Culture - Preliminary NO GROWTH AFTER 48 HOURS 04/10/18 13:05 Blood Blood Culture - Preliminary NO GROWTH AFTER 48 HOURS Lab Pending Results 04/10/18 12:34: WBC 13.4 H, RBC 4.37, Hgb 10.8 L, Hct 35.3 L, MCV 80.8, MCH 24.7 L, MCHC 30.6 L, RDW 16.1 H, Plt Count 263, MPV 11.0, Immature Gran % (Auto) 0.70 H, Immature Gran # (Auto) 0.09 H, Neutrophils % 76.4 H, Lymphocytes % 12.1 L, Monocytes % 9.3 H, Eosinophils % 1.2, Basophils % 0.3, Nucleated RBC % 0.0, Neutrophils # 10.3 H, Lymphocytes # 1.62, Monocytes # 1.3 H, Eosinophils # 0.2, Absolute Basophils 0.0 04/10/18 12:34: ESR 41 H 04/10/18 12:34: Sodium 140, Plasma Sodium 140, Potassium 4.1, Chloride 100, Carbon Dioxide 29.1, Anion Gap 15.0 H, BUN 30 H, Creatinine 1.16, Est GFR (Non- Af Amer) 47 L, BUN/Creatinine Ratio 25.9 H, Random Glucose 69 L, Calcium 9.1, Calcium Adj for Albumin 9.0, Total Bilirubin 0.4, AST 17, ALT 13 L, Alkaline Phosphatase 111, C-Reactive Prot, Quant 2.8 H, Total Protein 7.3, Albumin 3.7 04/10/18 12:34: Lactic Acid, Venous 0.7 04/11/18 07:30: WBC 11.0 H, RBC 4.13 L, Hgb 10.1 L, Hct 33.4 L, MCV 80.9, MCH 24.5 L, MCHC 30.2 L, RDW 15.9 H, Plt Count 238, MPV 10.6, Immature Gran % (Auto) 0.50 H, Immature Gran # (Auto) 0.06 H, Neutrophils % 72.2, Lymphocytes % 15.2 L, Monocytes % 10.1 H, Eosinophils % 1.9, Basophils % 0.1, Nucleated RBC % 0.0, Neutrophils # 7.9 H, Lymphocytes # 1.67, Monocytes # 1.1 H, Eosinophils # 0.2, Absolute Basophils 0.0 04/11/18 07:30: ESR 48 H 04/11/18 07:30: Sodium 140, Plasma Sodium 139, Potassium 4.1, Chloride 101, Carbon Dioxide 30.1, Anion Gap 13.0, BUN 31 H, Creatinine 1.20, Est GFR (Non-Af Amer) 45 L, BUN/Creatinine Ratio 25.8 H, Random Glucose 61 L, Calcium 8.9, Calcium Adj for Albumin 9.1, Total Bilirubin 0.6, AST 16, ALT 12 L, Alkaline Phosphatase 96, Total Protein 6.9, Albumin 3.4 04/12/18 10:58: WBC 10.0, RBC 4.40, Hgb 10.7 L, Hct 35.5 L, MCV 80.7, MCH 24.3 L, MCHC 30.1 L, RDW 15.7 H, Plt Count 228, MPV 10.9, Immature Gran % (Auto) 0.50 H, Immature Gran # (Auto) 0.05 H, Neutrophils % 79.7 H, Lymphocytes % 9.2 L, Monocytes % 9.3 H, Eosinophils % 1.2, Basophils % 0.1, Nucleated RBC % 0.0, Neutrophils # 8.0 H, Lymphocytes # 0.92 L, Monocytes # 0.9, Eosinophils # 0.1, Absolute Basophils 0.0 04/12/18 10:58: Sodium 137, Plasma Sodium 141, Potassium 4.6, Chloride 98, Carbon Dioxide 27.8, Anion Gap 15.8 H, BUN 35 H, Creatinine 1.07, Est GFR (Non- Af Amer) 52 L, BUN/Creatinine Ratio 32.7 H, Random Glucose 367 H D, Calcium 9.3, Calcium Adj for Albumin 9.5, Total Bilirubin 0.4, AST 14, ALT 12 L, Alkaline Phosphatase 102, Total Protein 6.9, Albumin 3.4 04/13/18 13:45: Vancomycin Trough 8.8 L 04/13/18 15:00: Pathology Specimen Spec to path 04/14/18 09:38: WBC 11.0 H, RBC 4.38, Hgb 10.8 L, Hct 36.0 L, MCV 82.2, MCH 24.7 L, MCHC 30.0 L, RDW 15.8 H, Plt Count 276, MPV 11.2, Immature Gran % (Auto) 0.60 H, Immature Gran # (Auto) 0.07 H, Neutrophils % 74.1, Lymphocytes % 11.2 L, Monocytes % 10.1 H, Eosinophils % 3.6 H, Basophils % 0.4, Nucleated RBC % 0.0, Neutrophils # 8.2 H, Lymphocytes # 1.24 L, Monocytes # 1.1 H, Eosinophils # 0.4, Absolute Basophils 0.0 04/14/18 09:38: ESR 43 H 04/14/18 09:38: Sodium 135, Plasma Sodium 136, Potassium 4.4, Chloride 99, Carbon Dioxide 27.5, Anion Gap 12.9, BUN 39 H, Creatinine 1.19, Est GFR (Non-Af Amer) 46 L, BUN/Creatinine Ratio 32.8 H, Random Glucose 178 H D, Calcium 9.0, Calcium Adj for Albumin 9.2, Total Bilirubin 0.5, AST 22, ALT 18 L, Alkaline Phosphatase 97, Total Protein 7.0, Albumin 3.3 L Discharge Location: Home Disposition: Home self-care Condition: Fair Discharge Activity: Activity as tolerated Discharge Diet: Consistent carbs Referrals: Arsalan Dodd MD [Primary Care Provider] - Annabella Hutchinson DPM [Staff Physician] - 04/20/18 Problem Oriented Discharge Instructions to Patient/Family: Bone and Joint Infections, Adult Additional Patient Instructions (free text): -Please make TCM appointment unless penitentiary discharge. Thank you! Talia @ [phone]. Follow up with Dr. Hutchinson on 04/20/18 at 3:00pm. Please arrive at 2:45pm. 1. Keep the dressing clean, dry and intact. 2. Avoid excessive ambulation on the left foot. 3. To elevate the left foot while at rest. 4. Wear surgical shoe on the left foot at all times while ambulating. 5. To contact my office for all postoperative followup care and should problems arise.[phone] Prescriptions (Any new or edited meds): Ciprofloxacin HCl [Cipro] 250 mg PO BID #14 tab traMADol HCL [Ultram] 50 mg PO Q6H PRN #60 tab PRN Reason: Pain Complete Home Medications List: Complete Home Medication List: Amlodipine Besylate 10 mg PO DAILY 10/03/17 Atorvastatin Calcium 20 mg PO HS 10/03/17 Digoxin [Lanoxin] 0.125 mg PO DAILY 10/03/17 Diltiazem HCl [Cartia Xt] 240 mg PO DAILY 10/03/17 Furosemide [Lasix] 40 mg PO BID 10/03/17 Lisinopril [Prinivil] 10 mg PO DAILY 10/03/17 Omeprazole [Prilosec] 20 mg PO BID 10/03/17 Sertraline HCl [Zoloft] 100 mg PO DAILY 10/03/17 glipiZIDE [Glipizide] 5 mg PO TID 10/03/17 Insulin Glargine,Hum.rec.anlog [Lantus Solostar] 100 unit SQ DAILY 04/11/18 Meclizine HCl 25 mg PO BID 04/11/18 Acetaminophen [Tylenol] 1,000 mg PO Q6H PRN tablet 04/14/18 Ciprofloxacin HCl [Cipro] 250 mg PO BID #14 tab 04/14/18 Insulin Glargine,Hum.rec.anlog [Lantus] 50 units SC HS vial 04/14/18 traMADol HCL [Ultram] 50 mg PO Q6H PRN #60 tab 04/14/18
[2018-04-14 13:29] VITALS: BP 131/49
[2018-04-16] MEDS ORDERED: VANCOMYCIN HCL LEVEL XX ONE (16:30)
== END 2018-04-14 14:04 | disposition home or self-care (01) | DRG 617 ==
LOC: ER 12:06 → MS 13:21 → INTOOBSV 13:21 → MS 14:16
PROVIDERS: ADMIT Family Medicine; ATTEND Family Medicine
DX: E11.65 Type 2 diabetes mellitus with hyperglycemia; E78.5 Hyperlipidemia, unspecified; Z79.4 Long term (current) use of insulin; M86.172 Other acute osteomyelitis, left ankle and foot; E11.69 Type 2 diabetes mellitus with other specified complication; E11.621 Type 2 diabetes mellitus with foot ulcer; K21.9 Gastro-esophageal reflux disease without esophagitis; Z95.5 Presence of coronary angioplasty implant and graft; Z85.048 Personal history of other malignant neoplasm of rectum, rectosigmoid junction, and anus; E11.42 Type 2 diabetes mellitus with diabetic polyneuropathy; B95.7 Other staphylococcus as the cause of diseases classified elsewhere; E11.52 Type 2 diabetes mellitus with diabetic peripheral angiopathy with gangrene; J44.9 Chronic obstructive pulmonary disease, unspecified; Z79.51 Long term (current) use of inhaled steroids; I10 Essential (primary) hypertension; Z87.891 Personal history of nicotine dependence; I48.2 Chronic atrial fibrillation; I25.810 Atherosclerosis of coronary artery bypass graft(s) without angina pectoris; L97.524 Non-pressure chronic ulcer of other part of left foot with necrosis of bone; I96 Gangrene, not elsewhere classified
CPT/HCPCS: 36415; 73630; 73720; 80053; 80202; 83605; 85025; 85652; 86140; 87040; 87070; 87075; 87077; 87186; 88305; 88311; 93005; 96365; 99285